=== PATIENT | female | born 1990 | race American Indian/Alaskan Native ===

== ENCOUNTER 2021-02-03 08:49 | Emergency (ER) | payer MEDICAID ==
--- NOTE | 2021-02-03 09:41 | Emergency Department Report ---
Minor Respiratory - HPI Chief Complaint: Upper Respiratory Infection Stated Complaint: COUGH/SNEEZING/CHILLS Time Seen by Provider: 02/03/21 09:21 Duration: 3 Days Pain Location: Facial, Throat, Nose, Ear, Chest Severity: mild Minor Respiratory: Yes Rhinorrhea, Yes Sore Throat, Yes Able to Tolerate Fluids, Yes Cough, No Ear Pain, No Sick Contacts, No Hemoptysis, No Chest Pain, No Shortness of Breath, No Fever Other History: Pt 30 yo that comes to ER with runny nose, cough and sore throat for 3 days. She is concerned she has covid19. She is not immunized. She has no known exposure. Pt educated on immunization and the fact that the ER does not do rapid testing. Her VS are normal. No hypoxia. No fever. She does have a loose cough- white phlegm. She is ambulatory and non ill appearing on triage ED Review of Systems ROS: Stated complaint: COUGH/SNEEZING/CHILLS Other details as noted in HPI Comment: All other systems reviewed and negative ED Past Medical Hx - Past Medical History Previous Medical History?: No - Surgical History Past Surgical History?: No - Family History Family history: no significant - Social History Smoking Status: Never Smoker Substance Use Type: None Minor Respiratory Exam - Exam General: Vital signs noted. No distress. Alert and acting appropriately. HEENT: Yes Pharyngeal Erythema, Yes Moist Mucous Membranes, Yes Rhinorrhea, No Pharyngeal Exudates, No Conjuctival Injection, No Frontal Tenderness, No Maxillary Tenderness Ear: Neither TM Bulge, Neither TM Erythema, Neither EAC Pain, Neither EAC Discharge Neck: Yes Supple, No Adenopathy Lungs: Yes Good Air Exchange, No Wheezes, No Ronchi, No Stridor, No Cough, No Labored Respirations, No Retractions, No Use of Accessory Muscles, No Other Abnormal Lung Sounds Heart: Yes Regular, No Murmur Abdomen: Yes Normal Bowel Sounds, No Tenderness, No Peritoneal Signs Skin: No Rash, No Edema Neurologic: Alert and oriented, no deficits. Musculoskeletal: Unremarkable. ED Medical Decision Making - Radiology Data Radiology results: report reviewed, image reviewed nap - Medical Decision Making VS normal as documented manually by DC champion pt d/c home with dc plan of care including follow up with pcp. Referral given. Pt verbalizes understanding of plan of care. On dc pt ambulatory, non toxic, non ill appearing; taking po. - Differential Diagnosis covid10/uri/pna Critical care attestation.: If time is entered above; I have spent that time in minutes in the direct care of this critically ill patient, excluding procedure time. ED Disposition Clinical Impression: URI (upper respiratory infection) Disposition: 01 HOME / SELF CARE / HOMELESS Is pt being admited?: No Does the pt Need Aspirin: No Condition: Stable Instructions: Viral Respiratory Infection, Ladz-Vh-Egrv Additional Instructions: continue over the counter meds for symptom relief xray normal today if you want rapid covid testing an urgent care can do them The ER does not follow up with pcp referral below stay well hydrated Referrals: MONIE GOODSON MD [Staff Physician] - 3-5 Days Time of Disposition: 09:44
--- NOTE | 2021-02-03 09:52 | XRay Report ---
CHEST 2 VIEWS INDICATION / CLINICAL INFORMATION: Shortness of breath.. COMPARISON: None available. FINDINGS: SUPPORT DEVICES: None. HEART / MEDIASTINUM: No significant abnormality. LUNGS / PLEURA: No significant pulmonary or pleural abnormality. No pneumothorax. ADDITIONAL FINDINGS: No significant additional findings. IMPRESSION: 1. No acute findings. Signer Name: Darin Garcia MD Signed: 02/03/2021 9:47 AM Workstation Name: [id number]
== END 2021-02-03 09:58 | disposition home or self-care (01) ==
LOC: ED 08:49
DX: J06.9 Acute upper respiratory infection, unspecified (principal)
CPT/HCPCS: 71046; 99283

== ENCOUNTER 2021-04-15 14:33 | Emergency (ER) | payer MEDICAID ==
[2021-04-15] MEDS ORDERED: HYDROcodone/ACETAMINOPHEN 10-325MG TAB PO ONE (14:58)
--- NOTE | 2021-04-15 15:50 | XRay Report ---
RIGHT FOREARM 2 VIEWS INDICATION / CLINICAL INFORMATION: pain COMPARISON: None available. FINDINGS: BONES / JOINT(S): No acute fracture or subluxation. No significant arthritis. SOFT TISSUES: No significant abnormality. ADDITIONAL FINDINGS: None. Signer Name: Alfa Tabor MD Signed: 04/15/2021 3:45 PM Workstation Name: [id number]
--- NOTE | 2021-04-15 16:12 | Vascular Lab Report ---
Right upper extremity venous Ultrasound HISTORY: pain with swelling. TECHNIQUE: Grayscale and color imaging performed. COMPARISON: None FINDINGS: No thrombus identified from the level of the right internal jugular vein through the subcla vian, axillary, brachial, basilic, radial, and ulnar veins. IMPRESSION: Negative for DVT. Signer Name: Wellington Valiente MD Signed: 04/15/2021 4:07 PM Workstation Name: [id number]
--- NOTE | 2021-04-15 17:02 | Emergency Department Report ---
ED Upper Extremity Inj HPI - General Chief Complaint: Extremity Injury, Upper Stated Complaint: R ARM PAIN Time Seen by Provider: 04/15/21 14:55 Source: patient Mode of arrival: Ambulatory Limitations: No Limitations - History of Present Illness Initial Comments: This is a 31-year-old female nontoxic, well nourished in appearance, no acute signs of distress presents to the ED with c/o of right forearm pain with some swelling x 1 day. Patient denies any injuries or trauma. Patient denies any numbness, tingling, fever, chills, nausea, vomiting, chest pain, shortness of breath, headache, stiff neck. Patient denies any joint swelling or joint redne ss. Patient denies decreased range of motion. Patient denies any allergies or significant past medical history. MD Complaint: Injury to:: right, forearm -: days(s) Other Extremity Injury: Forearm: Right Severity scale (0 -10): 8 Improves With: none Worsens With: none Associated Symptoms: denies other symptoms. denies: weakness, numbness, neck pain, suspects foreign body, nausea/vomiting, heard/felt popping sensat - Related Data Previous Rx's Medication Instructions Recorded Last Taken Type Naproxen 500 mg PO Q12H PRN #12 tablet 04/15/21 Unknown Rx Allergies Allergy/AdvReac Type Severity Reaction Status Date / Time No Known Allergies Allergy Verified 04/15/21 14:40 ED Review of Systems ROS: Stated complaint: R ARM PAIN Other details as noted in HPI Comment: All other systems reviewed and negative Constitutional: denies: chills, fever Eyes: denies: eye pain, eye discharge, vision change ENT: denies: ear pain, throat pain Respiratory: denies: cough, shortness of breath, wheezing Cardiovascular: denies: chest pain, palpitations Endocrine: no symptoms reported Gastrointestinal: denies: abdominal pain, nausea, diarrhea Genitourinary: denies: urgency, dysuria, discharge Musculoskeletal: denies: back pain, joint swelling, arthralgia Skin: denies: rash, lesions Neurological: denies: headache, weakness, paresthesias Psychiatric: denies: anxiety, depression Hematological/Lymphatic: denies: easy bleeding, easy bruising ED Past Medical Hx - Social History Smoking Status: Never Smoker Substance Use Type: None - Medications Home Medications: Home Medications Medication Instructions Recorded Confirmed Last Taken Type Naproxen 500 mg PO Q12H PRN #12 tablet 04/15/21 Unknown Rx ED Physical Exam - General Limitations: No Limitations General appearance: alert, in no apparent distress - Head Head exam: Present: atraumatic, normocephalic - Eye Eye exam: Present: normal appearance - Neck Neck exam: Present: normal inspection, full ROM. Absent: lymphadenopathy - Respiratory Respiratory exam: Absent: respiratory distress - Cardiovascular Cardiovascular Exam: Present: regular rate - Extremities Exam Extremities exam: Present: normal inspection, full ROM, tenderness, normal capillary refill. Absent: joint swelling - Expanded Upper Extremity Exam Right General: Present: normal inspection Shoulder Exam: Present: normal inspection, full ROM. Absent: tenderness, swelling Upper Arm exam: Present: normal inspection, full ROM. Absent: tenderness, swell ing Elbow exam: Present: normal inspection, full ROM. Absent: tenderness, swelling, abrasion, laceration, ecchymosis, deformity, crepidus, dislocation, erythema, effusion, pain w/ pronation/supination, tenderness over radial head Forearm Wrist exam: Present: normal inspection, full ROM, tenderness, swelling, ecchymosis. Absent: abrasion, laceration, deformity, crepidus, dislocation, erythema, tenderness over anatomical snuff box, pain with axial thumb loading Hand Wrist exam: Present: normal inspection, full ROM. Absent: tenderness, swelling Vascular: Present: normal capillary refill. Absent: vascular compromise (Neurovascular within normal limits), radial pulse, brachial pulse, ulnar pulse - Back Exam Back exam: Present: normal inspection, full ROM. Absent: tenderness, CVA tenderness (R), CVA tenderness (L), muscle spasm, paraspinal tenderness, vertebral tenderness, rash noted - Neurological Exam Neurological exam: Present: alert, oriented X3, normal gait - Psychiatric Psychiatric exam: Present: normal affect, normal mood - Skin Skin exam: Present: warm, dry, intact, normal color. Absent: rash - Expanded Skin Exam Expanded 1 - Tenderness with ecchymosis and some swelling here ED Course Vital Signs 04/15/21 04/15/21 14:41 16:03 Temperature 98.1 F Pulse Rate 79 Respiratory 18 16 Rate Blood Pressure 149/87 O2 Sat by Pulse 100 Oximetry - Reevaluation(s) Reevaluation #1: 04/15/21 17:06 Patient is speaking in full sentences with no signs of distress noted. ED Medical Decision Making - Radiology Data [address] [address] XRay Report Signed Patient: DANE POSEY MR#: [id number] : 1990 Acct:[id number] Age/Sex: 31 / F ADM Date: 04/15/21 Loc: ED Attending Dr: Ordering Physician: MARIE CARUSO NP Date of Service: 04/15/21 Procedure(s): XR forearm RT Accession Number(s): [id number] cc: MARIE CARUSO NP Fluoro Time In Minutes: RIGHT FOREARM 2 VIEWS INDICATION / CLINICAL INFORMATION: pain COMPARISON: None available. FINDINGS: BONES / JOINT(S): No acute fracture or subluxation. No significant arthritis. SOFT TISSUES: No significant abnormality. ADDITIONAL FINDINGS: None. Signer Name: Alfa Tabor MD Signed: 04/15/2021 3:45 PM Workstation Name: [id number] Transcribed By: ES Dictated By: Alfa Tabor MD Electronically Authenticated By: Alfa Tabor MD Signed Date/Time: 04/15/21 1545 DD/ 1537 TD/TT: [address] [address] Vascular Lab Report Signed Patient: DANE POSEY MR#: [id number] : 1990 Acct:[id number] Age/Sex: 31 / F ADM Date: 04/15/21 Loc: ED Attending Dr: Ordering Physician: MARIE CARUSO NP Date of Service: 04/15/21 Procedure(s): VL venous duplex UE RT Accession Number(s): [id number] cc: MARIE CARUSO NP Right upper extremity venous Ultrasound HISTORY: pain with swelling. TECHNIQUE: Grayscale and color imaging performed. COMPARISON: None FINDINGS: No thrombus identified from the level of the right internal jugular vein through the subclavian, axillary, brachial, basilic, radial, and ulnar veins. IMPRESSION: Negative for DVT. Signer Name: Wellington Valiente MD Signed: 04/15/2021 4:07 PM Workstation Name: [id number] Transcribed By: JAI Dictated By: Wellington Valiente MD Electronically Authenticated By: Wellington Valiente MD Signed Date/Time: 04/15/211606 DD/ 06 TD/TT: - Medical Decision Making This is a 31-year-old female that presents with right forearm muscular strain versus contusion. Patient is stable and was examined by me. I referred patient to an orthopedic doctor for further evaluation. X-ray and Doppler ultrasound has been obtained and dictated by the radiologist. Patient is notified of the imaging report with noted by the patient. Patient does have normal range of motion with some tenderness and no joint swelling. no joint redness or swelli ng. Not warm to touch. No signs of cellulites present. Patient was instructed to RICE therapy. Patient received [place] for pain stated that symptoms improved and subsided. Patient is discharged with naproxen. At time of discharge, the patient does not seem toxic or ill in appearance. No acute signs of distress noted. Patient agrees to discharge treatment plan of care. No further questions noted by the patient. Critical care attestation.: If time is entered above; I have spent that time in minutes in the direct care of this critically ill patient, excluding procedure time. ED Disposition Clinical Impression: Muscle strain of right forearm Qualifiers: Encounter type: initial encounter Qualified Code(s): S56.911A - Strain of unspecified muscles, fascia and tendons at forearm level, right arm, initial encounter Disposition: HOME / SELF CARE / HOMELESS Is pt being admited?: No Does the pt Need Aspirin: No Condition: Stable Instructions: Muscle Strain, [id number], RICE Therapy for Routine Care of Injuries, [id number] Additional Instructions: Follow-up with a primary care and orthopedic doctor in 3-5 days or if symptoms worsen and continue return to emergency room as soon as possible. Prescriptions: Naproxen 500 mg PO Q12H PRN #12 tablet PRN Reason: Pain , Severe (7-10) Referrals: PRIMARY CARE, [Primary Care Provider] - 3-5 Days CYNTHIA CAIN MD [Staff Physician] - 3-5 Days MONIE GOODSON MD [Staff Physician] - 3-5 Days Forms: Work/School Release Form(ED) Time of Disposition: 17:10
[2021-04-15 17:39] VITALS: BP 128/70
== END 2021-04-15 17:42 | disposition home or self-care (01) ==
LOC: ED 14:33
DX: S56.811A Strain of other muscles, fascia and tendons at forearm level, right arm, initial encounter (principal); X58.XXXA Exposure to other specified factors, initial encounter; Y93.89 Activity, other specified; Y92.89 Other specified places as the place of occurrence of the external cause; Y99.8 Other external cause status
CPT/HCPCS: 99284